=== PATIENT | female | born 1965 | race Caucasian/White ===

== ENCOUNTER → 2016-09-19 | Outpatient (CLI) | payer OTHER, MEDICAID | LOC: BMCIMAGING 14:10 | PROVIDERS: ATTEND Obstetrics & Gynecology Gynecology | DX: Z12.31 Encounter for screening mammogram for malignant neoplasm of breast (principal) | CPT/HCPCS: G0202 ==

== ENCOUNTER → 2016-10-04 | Outpatient (CLI) | payer OTHER, MEDICAID | LOC: BMCIMAGING 13:59 | DX: R92.8 Other abnormal and inconclusive findings on diagnostic imaging of breast (principal) | CPT/HCPCS: G0206 ==

== ENCOUNTER 2016-12-12 16:32 | Emergency (ER) | payer OTHER, MEDICAID ==
[2016-12-12 16:41] VITALS: RESP 18; TEMP 97.9
--- NOTE | 2016-12-12 18:09 | EDPHY ---
HPI/HX/ROS/PE/MDM Narrative: CHIEF COMPLAINT: Head injury HPI: The patient is a 51 y/o female arriving with her family member complaining of head injury after tripping and falling on the stairs around 15:00 today, 3 hours ago. She describes a mechanical fall and struck her left knee and left forehead. She denies loss of consciousness, headache, weakness, paresthesias, chest pain, abdominal pain, or other injuries. She has been ambulatory since the fall without issue. She went to urgent care for evaluation and was referred to the ED for head imaging. She denies anticoagulant use. She currently feels at baseline. REVIEW OF SYSTEMS: Aside from elements discussed in the HPI, a comprehensive 10-point review of systems was reviewed and is negative. PMH: Bipolar and schizoaffective disorder SOCIAL HISTORY: Family member at bedside PHYSICAL EXAM: General:Patient is alert, in no acute distress. ENT:Eyes are normal to inspection. ENT inspection normal. Neck: Normal inspection. Full range of motion. Respiratory:No respiratory distress. Breath sounds normal bilaterally. Cardiovascular: Regular rate and rhythm. Strong peripheral pulses. Normal cap refill. Abdomen:The abdomen is nontender to palpation. There are no peritoneal signs. Back: Normal to inspection. No tenderness to palpation. Skin: Normal color. No rash. Warm and dry. Extremities: Abrasion to left knee. Normal appearance. Full range of motion. Neuro: Oriented x3. Normal motor function. Normal sensory function. ED Course: Presents with superficial abrasion to left knee after fall down stairs. No other visible trauma noted. Normal neurologic exam. Plan for head CT. She declines pain medication at this time. Head CT: negative per Dr. eDan. Reassessed patient and discussed findings. She remains neurovascularly intact. She will be discharged home with standard head injury instructions and return precautions. She is comfortable with this plan. MDM: This patient presents with head injury but CTH is thankfully negative. I do not think further workup is indicated. I see no evidence of SAH, skull fracture , epidural bleed or concussion. - Data Points Imaging Results: Imaging Impressions Head CT 12/12/16 18:09 Impression: There is no acute abnormality identified on this unenhanced CT evaluation. If there is further clinical concern regarding the patient's symptoms, MR imaging is suggested, if not otherwise contraindicated. Findings were discussed with Kim in the ED, who will convey the information to Rubens Salter MD at 19:00, on 12/12/2016. General Time Seen by Provider: 12/12/16 16:47 Initial Vital Signs: Initial Vital Signs Temperature (C) 36.6 C 12/12/16 16:38 Heart Rate 63 12/12/16 16:38 Respiratory Rate 18 12/12/16 16:38 Blood Pressure 126/87 H 12/12/16 16:38 O2 Sat (%) 96 12/12/16 16:38 O2 Delivery Mode Room Air Allergies/Adverse Reactions: Penicillins Allergy (Intermediate, Verified 12/12/16 16:35) internal hives Home Medications: Medication Instructions Recorded Escitalopram Oxalate [Lexapro] 2.5 mg PO DAILY 02/09/14 Eszopiclone [Lunesta] 3 mg PO HS 02/09/14 Gabapentin [Neurontin 300 MG (RX)] 300 mg PO ,16 02/09/14 Gabapentin [Neurontin 300 MG (RX)] 900 mg PO HS 02/09/14 Liothyronine Sodium [Cytomel 5 mcg 15 mcg PO DAILY 02/09/14 (RX)] Memantine HCl [Namenda 5 mg (RX)] 5 mg PO HS 02/09/14 Memantine HCl [Namenda 5 mg (RX)] 10 mg PO DAILY 02/09/14 Perphenazine [Trilafon 8mg (RX)] 4 mg PO HS 02/09/14 Progesterone, Micronized 100 mg PO DAILY 02/09/14 [Progesterone] QUEtiapine FUMARATE [Seroquel 300 mg PO HS 02/09/14 300mg (RX)] lamoTRIgine [Lamictal XR] 250 mg PO DAILY 02/09/14 metFORMIN HCL [Glucophage] 750 mg PO BIDMEAL 02/09/14 LORazepam [Ativan 2 mg tab] 3 mg PO HS 09/14/15 Levothyroxine [Synthroid 88 mcg 88 mcg PO DAILY06 09/14/15 (RX)] [place] Carbonate ER [Eskalith Cr 450 mg PO DAILY 09/14/15 450 mg (RX)] [place] Carbonate ER [Lithobid] 300 mg PO HS 09/14/15 lamoTRIgine [LamICTAL] 100 mg PO DAILY 09/14/15 Departure - Departure Disposition: Home, Routine, Self-Care Clinical Impression: Fall, Head injury, Abrasion Condition: Good Instructions: Head Injury (ED), Abrasion (ED) Additional Instructions: Follow up with your primary care provider for any unimproved symptoms over the next few days. Return to the ED for any worsening of condition. Referrals: Shilpa House MD [Primary Care Provider] - As per Instructions Report Scribed for: Rubens Salter Report Scribed by: Kim Simon Date of Report: 12/12/16 Time of Report: 18:09 Physician Review and Approval Statement: Portions of this note were transcribed by an ED scribe. I personally performed the history, physical exam, and medical decision making; and confirm the accuracy of the information in the transcribed note.
[2016-12-12 19:23] VITALS: BP 108/98; PULSE 59; O2SAT 94
== END 2016-12-12 19:21 | disposition home or self-care (01) ==
DX: S09.90XA Unspecified injury of head, initial encounter (principal); S80.212A Abrasion, left knee, initial encounter; W01.198A Fall on same level from slipping, tripping and stumbling with subsequent striking against other object, initial encounter

== ENCOUNTER 2016-12-21 15:16 | Inpatient (IN) | payer OTHER, MEDICAID ==
--- NOTE | 2016-12-21 11:31 | BGECT ---
Amended report [f rep st] OUTPATIENT ECT I met today with the patient in concert with Tracee Luis RN, for over an hour to discuss a number of issues. I had a thorough letter that I reviewed from her therapist, Deya Montoya. I also had her recent emergency department visit notes and CT scan results, as well as her recent history and physical. In summary, it appears as if the patient is experiencing an increase in her mood and psychotic symptoms with notable mood instability and mixed states. She has approached this increase in her symptomatology with increasing her medications in the form of PRNs. Subsequent to that, she has periodically experienced motor instability, ataxia, and slurred speech, and had a recent serious fall after an ECT treatment where she hit her head requiring the emergency department visit. Her CT scan was negative. Basic lab work was noncontributory that included CBC and electrolyte panel. Her standing medications are significant and include: Memantine 15 mg a day in divided doses , gabapentin 2400 mg in divided doses, Seroquel 300 mg at bedtime, Cytomel 15 mcg daily, lamotrigine 350 mg q.a.m., Lunesta 3 mg at bedtime, Lexapro 2.5 mg daily, Trilafon 4 mg at night but often increased to 8 mg as needed, metformin, lithium carbonate 300 mg daily, levothyroxine, and lorazepam 2 mg as needed. It appears as if she has used the lorazepam, Trilafon, olanzapine, and increased gabapentin all as PRNs in the recent past and it is unclear what specifically led to the increased unsteadiness. I expressed to her that I feel her standing medications put her at some increased risk to begin with and like a "perfect storm" the addition of any further PRNs could be risky for her. Certainly doing outpatient ECT with the medications that she is presently taking puts her at risk for falls as recently seen. She is also on Nuedexta 2 times per day, which might even have a further impact of increasing some of her medications that are metabolized by the P450 2D6 enzyme. By history, she has simply not responded adequately to very aggressive and thoughtful medication combinations from Dr. Mac nor supplements provided. ECT has been imperfect in certain ways, but more clearly beneficial when she is in a true exacerbation of her mood symptoms. She has ambivalence around it as she attributes cognitive issues to it even when, in my opinion, much of her cognitive phenomenology is more likely a function of her mood disorder itself or the medication she takes for it. I presented her with the following plan. I believe she should come inpatient and have her medications reduced. Specifically ones that have antiepileptic effects, cognition impairing effects, or can produce ataxia/motor incoordination. This might include her gabapentin, Lamictal, Seroquel, and Trilafon. I would also have her not use benzodiazepines or extra PRNs. With the reduction of those medications, she will be able to more safely and with greater therapeutic effect undergo a short course of acute, bilateral ECT, as this again has been the most effective treatment for her. Dr. Mac should be returning from vacation next week and he can provide guidance on whether there is any medications that he would like us to implement. It is quite possible this patient would ultimately do best if she remained more committed and consistent with maintenance ECT and less reliant on medications that have provided her minimum relief. However, of course this is the patient's decision, and if subjectively she does not feel as confident as I that ECT has been as helpful as it has and believes it has been more harmful cognitively, then we will respect that decision and not undertake this treatment plan. Today, on mental status exam she is constricted in affect , but lucid in her thinking with no slurring of speech or ataxia noted. She does not have profound psychomotor slowing. She is fairly well related. Her judgment and insight are somewhat impaired, which is not atypical for her. She has passive suicidal ideation. No homicidal ideation. Some occasional perceptual distortions. No kelby delusions. Impulse control seems adequate at the moment. Logistically, what is compelling her to not come into the hospital immediately is the need to ensure that her ill cat has a dsp engineer who can take over in the patient's absence. Beyond that, I believe there is some ambivalence about the inpatient unit, but she also seems to understand that her symptoms are not improving and that she is being put at risk by increasing her medications due to the recent falling. /[id number]/MODL Assigned account/visit number, skb 12/22/2016. MTDD
--- NOTE | 2016-12-21 15:57 | EDPHY ---
H & P Stated Complaint: ECT RN and Dr Chavez sent pt here to be admitted for inpt psych;denies SI/H HPI/ROS: HPI CHIEF COMPLAINT: Severe depression HISTORY OF PRESENT ILLNESS: this patient is a 51-year-old female very pleasant , she has significant past medical history for severe depression, schizoaffective disorder bipolar, she presents emergency room as she is due to get ECT next week. Dr. Campos sent her here to the emergency room to be admitted at [address] [place] [address]. Here in the ER she has no complaints. She does tell me she has depression. She denies suicidal ideation. She is voluntary Past Medical History: severe depression, bipolar disorder, schizoaffective disorder Past Surgical History: no recent surgical history Social History: denies daily use of drugs alcohol tobacco products Family History: noncontributory ROS REVIEW OF SYSTEMS: A comprehensive 10 point review of systems is otherwise negative aside from elements mentioned in the history of present illness. Exam Constitutional appears well nontoxic triage nursing summary reviewed, vital signs reviewed, awake/alert. Eyes normal conjunctivae and sclera, EOMI, PERRLA. HENT normal inspection, atraumatic, moist mucus membranes, no epistaxis, neck supple/ no meningismus, no raccoon eyes. Respiratory clear to auscultation bilaterally, normal breath sounds, no respiratory distress, no wheezing. Cardiovascular rate normal, regular rhythm, no murmur, no edema, distal pulses normal. Gastrointestinal soft, non-tender, no rebound, no guarding, normal bowel sounds, no distension, no pulsatile mass. Genitourinary no CVA tenderness. Musculoskeletal no midline vertebral tenderness, full range of motion, no calf swelling, no tenderness of extremities, no meningismus, good pulses, neurovascularly intact. Skin pink, warm, & dry, no rash, skin atraumatic. Neurologic awake, alert and oriented x 3, AAOx3, moves all 4 extremities equally, motor intact, sensory intact, CN II-XII intact, normal cerebellar, normal vision, normal speech. Psychiatric flat affect Heme/Lymph/Immune no lymphadenopathy. Differential Diagnosis: includes but is not limited to in a particular order, severe depression, debilitating depression, bipolar disorder Medical Decision Making: plan for this pain patient will need a blood draw for medical clearance, and then voluntary admission to [address] [place] [address] for further evaluation and ECT. EKG interpretation by me on record in [facility] system. Impression Time of EKG 1626, sinus rhythm rate of 66 otherwise unremarkable EKG. No prolonged intervals. No acute ischemia. 2024:This patient has been accepted by Dr. Campos at [address] [place] [address]. Appropriate transfer be set up. EMTALA filled out. 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 - Social History Smoking Status: Light smoker Constitutional: Initial Vital Signs Temperature (C) 36.7 C 12/21/16 15:24 Heart Rate 79 12/21/16 15:24 Respiratory Rate 18 12/21/16 15:24 Blood Pressure 123/72 H 12/21/16 15:24 O2 Sat (%) 96 12/21/16 15:24 O2 Delivery Mode Room Air Allergies/Adverse Reactions: Penicillins Allergy (Severe, Verified 12/21/16 17:59) Hives Home Medications: Medication Instructions Recorded Escitalopram Oxalate [Lexapro] 2.5 mg PO DAILY 02/09/14 Eszopiclone [Lunesta] 3 mg PO HS 02/09/14 Gabapentin [Neurontin 300 MG (RX)] 900 mg PO BID 02/09/14 Memantine HCl [Namenda 5 mg (RX)] 10 mg PO DAILY 02/09/14 Perphenazine [Trilafon 8mg (RX)] 4 mg PO HS 02/09/14 QUEtiapine FUMARATE [Seroquel 300 mg PO HS 02/09/14 300mg (RX)] lamoTRIgine [Lamictal XR] 250 mg PO DAILY 02/09/14 metFORMIN HCL [Glucophage] 750 mg PO BIDMEAL 02/09/14 Levothyroxine [Synthroid 88 mcg 88 mcg PO DAILY06 09/14/15 (RX)] [place] Carbonate ER [Lithobid] 300 mg PO DAILY 09/14/15 Compounded Estrogen Crm 1 roberto TP DAILY 12/21/16 Compounded Progesterone 300mg 300 mg PO HS 12/21/16 Dextromethorphan HBr/Quinidine 1 each PO BID 12/21/16 [Nuedexta 20-10 mg Capsule] Gabapentin [Neurontin] 600 mg PO DAILY@15 12/21/16 Herbals/Supplements -Info Only 1 ea PO DAILY 12/21/16 lamoTRIgine [LamICTAL XR] 100 mg PO DAILY 12/21/16 Medical Decision Making - Data Points Laboratory Results: Laboratory Results 12/21/16 16:12 12/21/16 16:12 12/21/16 12/21/16 12/21/16 Unknown 16:40 16:12 WBC RBC Hgb Hct MCV MCH MCHC RDW Plt Count MPV Neut % (Auto) Lymph % (Auto) [place] % (Auto) Eos % (Auto) Baso % (Auto) Nucleat RBC Rel Count Absolute Neuts (auto) Absolute Lymphs (auto) Absolute Monos (auto) Absolute Eos (auto) Absolute Basos (auto) Absolute Nucleated RBC Immature Gran % Immature Gran # Sodium Potassium Chloride Carbon Dioxide Anion Gap BUN Creatinine Estimated GFR Glucose Calcium TSH 0.784 uIU/mL uIU/mL (0.465-4.680) Urine Opiates Screen NEGATIVE (NEGATIVE) Urine Barbiturates NEGATIVE (NEGATIVE) Lamotrigine Pending Ur Phencyclidine Scrn NEGATIVE (NEGATIVE) Ur Amphetamine Screen NEGATIVE (NEGATIVE) U Benzodiazepines Scrn NEGATIVE (NEGATIVE) [place] 0.6 mEq/L mEq/L (0.6-1.2) Urine Cocaine Screen NEGATIVE (NEGATIVE) U Marijuana (THC) Screen NEGATIVE (NEGATIVE) Ethyl Alcohol 12/21/16 12/21/16 16:12 16:12 WBC 7.63 10^3/uL 10^3/uL (3.80-9.50) RBC 4.39 10^6/uL 10^6/uL (4.18-5.33) Hgb 13.6 g/dL g/dL (12.6-16.3) Hct 40.2 % % (38.0-47.0) MCV 91.6 fL fL (81.5-99.8) MCH 31.0 pg pg (27.9-34.1) MCHC 33.8 g/dL g/dL (32.4-36.7) RDW 12.5 % % (11.5-15.2) Plt Count 364 10^3/uL 10^3/uL (150-400) MPV 8.5 fL L fL (8.7-11.7) Neut % (Auto) 67.0 % % (39.3-74.2) Lymph % (Auto) 26.1 % % (15.0-45.0) [place] % (Auto) 5.0 % % (4.5-13.0) Eos % (Auto) 0.9 % % (0.6-7.6) Baso % (Auto) 0.7 % % (0.3-1.7) Nucleat RBC Rel Count 0.0 % % (0.0-0.2) Absolute Neuts (auto) 5.12 10^3/uL 10^3/uL (1.70-6.50) Absolute Lymphs (auto) 1.99 10^3/uL 10^3/uL (1.00-3.00) Absolute Monos (auto) 0.38 10^3/uL 10^3/uL (0.30-0.80) Absolute Eos (auto) 0.07 10^3/uL 10^3/uL (0.03-0.40) Absolute Basos (auto) 0.05 10^3/uL 10^3/uL (0.02-0.10) Absolute Nucleated RBC 0.00 10^3/uL 10^3/uL (0-0.01) Immature Gran % 0.3 % % (0.0-1.1) Immature Gran # 0.02 10^3/uL 10^3/uL (0.00-0.10) Sodium 139 mEq/L mEq/L (134-144) Potassium 4.3 mEq/L mEq/L (3.5-5.2) Chloride 103 mEq/L mEq/L (97-110) Carbon Dioxide 21 mEq/l L mEq/l (22-31) Anion Gap 15 mEq/L mEq/L (8-16) BUN 12 mg/dL mg/dL (7-23) Creatinine 0.9 mg/dL mg/dL (0.6-1.0) Estimated GFR > 60 Glucose 86 mg/dL mg/dL (70-100) Calcium 10.2 mg/dL mg/dL (8.5-10.4) TSH Urine Opiates Screen Urine Barbiturates Lamotrigine Ur Phencyclidine Scrn Ur Amphetamine Screen U Benzodiazepines Scrn [place] Urine Cocaine Screen U Marijuana (THC) Screen Ethyl Alcohol < 10 mg/dL mg/dL (0-10) Departure - Departure Disposition: [facility] IP Clinical Impression: Depression Qualifiers: Depression Type: major depressive disorder Major depression recurrence: single episode Active/Remission status: currently active Major depression episode severity: mild Qualified Code(s): F32.0 - Major depressive disorder, single episode, mild Condition: Fair Referrals: Shilpa House MD [Primary Care Provider] - As per Instructions
[2016-12-21 16:20] LABS: % IMMATURE GRANULYOCYTES 0.3 % (0.0-1.1); ABSOLUTE IMMATURE GRANULOCYTES 0.02 10^3/uL (0.00-0.10); ADD DIFF? NO; ADD MORPH? NO; ADD SCAN? NO; ATYPICAL LYMPHOCYTE FLAG 0 (0-99); FRAGMENT RBC FLAG 0 (0-99); HEMATOCRIT 40.2 % (38.0-47.0); HEMOGLOBIN 13.6 g/dL (12.6-16.3); LEFT SHIFT FLG 0 (0-99); LIPEMIA HEMOLYSIS FLAG 90 (0-99); MEAN CELL HEMOGLOBIN CONCENTR. 33.8 g/dL (32.4-36.7); MEAN CELL VOLUME 91.6 fL (81.5-99.8); MEAN PLATELET VOLUME 8.5 fL (8.7-11.7); PLATELET CLUMPS FLAG 0 (0-99); PLATELET COUNT 364 10^3/uL (150-400); RED BLOOD CELL COUNT 4.39 10^6/uL (4.18-5.33); RED CELL DISTRIBUTION WIDTH 12.5 % (11.5-15.2)
--- NOTE | 2016-12-21 16:28 | CPEKG ---
Heart Rate: 66 RR Interval: 909 P-R Interval: 172 QRSD Interval: 100 QT Interval: 408 QTC Interval: 428 P [place]: 56 QRS [place]: 36 T Wave [place]: -1 EKG Severity - NORMAL ECG - EKG Impression: SINUS RHYTHM Electronically Signed By: Osman Hogan 21-Dec-2016 22:45:09
[2016-12-21 16:36] LABS: ANION GAP 15 mEq/L (8-16); CALCIUM 10.2 mg/dL (8.5-10.4); CARBON DIOXIDE 21 mEq/l (22-31); CHLORIDE 103 mEq/L (97-110); CREATININE 0.9 mg/dL (0.6-1.0); ETHANOL SERUM < 10 mg/dL (0-10); GLOMERULAR FILTRATION RATE > 60; GLUCOSE 86 mg/dL (70-100); POTASSIUM 4.3 mEq/L (3.5-5.2); SODIUM 139 mEq/L (134-144)
[2016-12-21] MEDS ORDERED: ACETAMINOPHEN 325 MG TAB PO PRN ×2 (17:07→21:42)
[2016-12-21] MEDS ORDERED: MAG HYDROX/AL HYDROX/SIMETH 30 ML UDCUP PO PRN ×2 (17:07→21:42)
[2016-12-21] MEDS ORDERED: MAGNESIUM HYDROXIDE 30 ML UDCUP PO PRN ×2 (17:07→21:42)
[2016-12-21] MEDS ORDERED: NICOTINE POLACRILEX 2 MG GUM B PRN ×2 (17:07→21:42)
[2016-12-21 17:24] LABS: LITHIUM 0.6 mEq/L (0.6-1.2)
[2016-12-21 22:41] LABS: COLOR PALE YELLOW; LEUKOCYTE ESTERASE,URINE 2+ (NEGATIVE); NITRITE,URINE NEGATIVE (NEGATIVE)
[2016-12-21] MEDS ORDERED: PERPHENAZINE 2 MG TAB PO SCH (22:45)
[2016-12-21] MEDS: QUEtiapine FUMARATE 100 MG TAB PO SCH (22:49)
[2016-12-21] MEDS: GABAPENTIN 300 MG CAP PO SCH (22:49)
[2016-12-21] MEDS: PERPHENAZINE 2 MG TAB PO SCH (22:58)
[2016-12-21 23:11] LABS: BACTERIA TRACE /hpf (NONE SEEN)
[2016-12-21 23:12] LABS: RBC,URINE NONE SEEN /hpf (0-3)
--- NOTE | 2016-12-21 23:18 | GCON ---
[f rep st] CONSULTATION Please see the magnetic tape typewriter operator's report dictated yesterday for further information. The patient is a 51-year-old white single female, who is treated by Soham Mac MD, and Deya Montoya. This magnetic tape typewriter operator treats her, and has done so for the last 5 years, with maintenance electroconvulsi ve therapy. She presented yesterday for a visit with this magnetic tape typewriter operator, accompanied by Tracee Akins RN, t o discuss her treatment plan. Apparently she is having an exacerbation of her mood and psychotic sy mptoms followed by increasing use of p.r.n. medications which has led her to feel unstable and even have some falls. An ECT treatment was also attempted but led later that day to a more severe fall, prompting a visit to the emergency department. Head CT was negative at that point, as she did bang her head and incurred a large bruise on her torso. At the meeting yesterday, she enumerated her med ications and the way in which she is taking sporadic PRNs. Her medications include memantine 50 mg a day in divided doses, gabapentin 2400 mg in divided doses, Seroquel 300 mg at bedtime, Cytomel 15 mcg q. day, lamotrigine XR 350 mg q. day, Lunesta 3 mg at bedtime, Lexapro 2.5 mg q. day, and Trilaf on 4 mg at night but she often has been increasing this to 8 mg because of increase in her mixed and psychotic symptoms. She also takes lithium carbonate 300 mg a day, metformin, levothyroxine, and a nother p.r.n., lorazepam 2 mg with unclear frequency with which she is using that medication. She h as also taken olanzapine as a p.r.n., which she clearly has stores of at home. She is monitoring he r own medication. It was made clear to her that her standing medications put her at increased risk for falls, and she is clearly susceptible with any additional medications or the addition of ECT. I t was at this meeting that we concluded that she needed to come inpatient in order to have medicatio ns reduced, thereby enabling her to undergo a short course of acute ECT more safely. Another medica tion she uses is Nuedexta 2 times per day which is for pseudobulbar affect and used for mood instabi lity off-label by psychiatrist. This may have the impact of increasing some of her medications that may be metabolized by the P450 2D6 enzyme. I had a lengthy discussion with the patient's brother, Rubens, today. She lives with him, but his wo rk situation is so tenuous that he is unable to take any time off to care for her and has not been q uite on top of her medications as he has historically been. He was given psychoeducation, as the lorna vieira received yesterday, about the fact that her present cognitive complaints of poor memory and at tention are, to this magnetic tape typewriter operator, much more clearly a function of her inadequately treated mood disorder primarily and medications secondarily, with ECT being a far 3rd. He also corroborated the history t hat this patient had also been taking Wellbutrin recently and Vraylar, possibly both started by Dr. Mac given the patient's complaints of anergia. These were given to her in the last few months , and it is over this last time frame that she has experienced increased mood lability, psychosis, i ncluding auditory hallucinations telling her derogatory things, and mixed episodes. He was in favor of discontinuing the Wellbutrin. He also is comfortable with the magnetic tape typewriter operator implementing a short acute course of ECT but simply wishes us to be able to keep her a bit longer after her acute course so th at she can convalesce from her cognitive side effects, as he will not be able to provide 24/7 superv ision. Thus, in sum, the treatment plan for the patient is the followin. Reduce or discontinue certain medications that could be contributing to her cognitive impairment , gait instability, and recent falls. Also reduce medications that have antiepileptic affects so as to enhance the efficacy of the ECT treatments. I would recommend a reduction of her gabapentin, La mictal, Trilafon back to 4 mg, and the discontinuation of lithium which can incur her neurocognitive side affects with acute ECT anyway. (Her lithium level in the ER was 0.6, and her TSH was normal a t 0.784, lamotrigine level was pending.). 2. Begin acute ECT treatments. I will consult with patient on Saturday again about whether she wishe s to pursue bilateral or unilateral treatment. If we are, in fact, going to try to limit the number of treatments, I do not think it is that consequential in terms of cognitive impact whether we do b ilateral versus unilateral, and the bilateral is incrementally more powerful. Thus, I would probabl y recommend bilateral but am, of course, going to leave that up to the patient. 3. If an acute course of ECT has proved fruitful, we may consider changes to her medications. She seems to be wedded to the notion of trying Trileptal. It is, on the other hand, an entirely legitim ate therapeutic plan to keep her on a less significant load of psychotropic medication if she is brayan ling to use maintenance ECT more frequently. 4. Dr. Villagomez will be taking over her care as of Saturday evening, as this magnetic tape typewriter operator will be away on [facility] for 2 weeks. A voicemail has been left for Dr. Mac who, himself, is on vacation during this same time frame, and a voicemail was left yesterday for Deya Montoya, who responded with one of her own indicating that she agrees with the game plan as described. /[id number]/MODL
[2016-12-22] MEDS: GABAPENTIN 300 MG CAP PO SCH ×2 (08:50→21:17)
[2016-12-22] MEDS: ESCITALOPRAM OXALATE 10 MG TAB PO SCH (08:51)
[2016-12-22] MEDS: MEMANTINE HCL 5 MG TAB PO SCH (08:51)
[2016-12-22] MEDS: metFORMIN HCL 500 MG TAB PO SCH ×2 (08:53→18:54)
[2016-12-22] MEDS ORDERED: GABAPENTIN 300 MG CAP PO SCH (09:00)
[2016-12-22] MEDS ORDERED: GABAPENTIN 400 MG CAP PO SCH (09:00)
[2016-12-22] MEDS ORDERED: Herbals/Supplements -Info Only PO SCH (09:00)
[2016-12-22] MEDS ORDERED: ESCITALOPRAM OXALATE 2.5 MG PO SCH (09:00)
[2016-12-22] MEDS: LEVOTHYROXINE 88 MCG TAB PO SCH (10:58)
[2016-12-22] MEDS: [UNRECOGNIZED DRUG - OTHER] TP SCH (12:06)
[2016-12-22] MEDS: DEXTROMETHORPHAN HBR PO SCH ×2 (12:07→21:15)
[2016-12-22] MEDS: QUINIDINE PO SCH ×2 (12:07→21:15)
[2016-12-22] MEDS: LAMOTRIGINE 100 MG PO SCH (12:09)
--- NOTE | 2016-12-22 12:24 | GCON ---
[f rep st] CONSULTATION INTERNAL MEDICINE CONSULTATION DATE OF CONSULTATION: 12/22/2016 REASON FOR CONSULTATION: Medical clearance for inpatient psychiatric treatment. HISTORY OF PRESENT ILLNESS: This is a 51-year-old female who has a complicated psychiatric history including severe depression, who was getting ECT treatments in the past and will probably get them i n the future. She has a history of schizoaffective disorder and bipolar depression. She was sent t o be admitted for ECT treatment. She currently denies any physical complaints. REVIEW OF SYSTEMS: A 10-point review of systems was obtained and was negative. PAST MEDICAL HISTORY: Severe depression, bipolar schizoaffective disorder. She is on metformin for some early diabetes, probably due to her medications. She also has a history of hypothyroidism and previous history of migraine headaches. SOCIAL HISTORY: Recovering alcoholic. FAMILY HISTORY: Reviewed and noncontributory. PHYSICAL EXAM: VITAL SIGNS: Afebrile. Blood pressure is 163/87, heart rate 67, oxygen saturation 97% on room air. GENERAL: The patient is well-developed, no apparent distress. HEENT: Nonicteric sclerae. Extraocular movements intact. Moist mucous membranes. NECK: Supple. No thyromegaly. LUNGS: Good effort. Clear to auscultation bilaterally. CARDIOVASCULAR: Regular rate and rhythm. No murmurs or gallops. ABDOMEN: Positive bowel sounds. Soft, nontender, nondistended. No hepato splenomegaly. EXTREMITIES: No clubbing, cyanosis or edema. SKIN: Without rash. Warm, dry, intac t. NEUROLOGIC: Alert and oriented x3. LABS: CBC is normal. Chemistries normal. TSH is 0.7. UA shows 2+ leukocyte esterase and trace ba cteria, but she is denying any urinary complaints. U-tox is negative. ASSESSMENT: This is a 51-year-old female presenting for electroconvulsive therapy treatment for sev ere depression. PLAN: There are no contraindications for patient being hospitalized for her psychiatric disorder or for ECT. She has had that in the past. Continue her previous home medications. /[id number]/MODL
--- NOTE | 2016-12-22 19:44 | SOAPPROG ---
SOAP Progress Note Assessment/Plan: Assessment: Plan: 12/22/16 19:46 Plan as above with medication changes and abbreviated acute course ECT starting Saturday. Subjective: Pt seen, discussed with staff. Case reviewed with Dr. Chavez. She is a 51 y/o CF with hx of depressive predominant Bipolar d/o. Has reached a point in active treatment where it is unclear whether there are iatrogenic causes or contributors to her overall clinical picture and acute dysfunction. Aggressive efforts initiated to limit possible negative impact of polypharmacy. Will support with brief acute phase ECT. This plan is reviewed with pt at length today and she is agreeable. She objected at first stating she was "afraid" to make more than one change at a time and actually wanted to add meds. I reinforced Dr. Chavez's plan that a subtractive approach backed by brief intervention of acute course ECT was reasonable. Objective: Vital Signs Temp Pulse Resp BP Pulse Ox 36.3 C 78 14 127/75 H 94 12/22/16 13:18 12/22/16 13:18 12/22/16 13:18 12/22/16 13:18 12/22/16 13:18 MSE: Moderately anxious, coop, approp. Affect is blunted, dysphoric, stable. Mood is "scared." TP linear with some negative perseveration. TC reveals no psychosis. A&Ox4, sensorium is clear. No SI. I/J appear good and pt is able to provide informed consent for treatment plan. - Time Spent With Patient Time Spent With Patient: 35" - Pending Discharge Pending Discharge Within 24 Hours: No Pending Discharge Within 48 Hours: No ICD10 Worksheet Patient Problems: Problems Problem Status Onset Depression Acute pneumoperitoneum Acute
[2016-12-22] MEDS ORDERED: PERPHENAZINE 8 MG TAB PO SCH (21:00)
[2016-12-22] MEDS ORDERED: QUEtiapine FUMARATE 300 MG TAB PO SCH (21:00)
[2016-12-22] MEDS ORDERED: PERPHENAZINE 2 MG TAB PO SCH (21:00)
[2016-12-22] MEDS: COMPOUNDED PROGESTERONE 200 MG PO SCH (21:12)
[2016-12-22] MEDS: PROGESTERONE 100 MG PO SCH (21:13)
[2016-12-22] MEDS: PERPHENAZINE 2 MG TAB PO SCH (21:15)
[2016-12-22] MEDS: QUEtiapine FUMARATE 100 MG TAB PO SCH (21:15)
[2016-12-22] MEDS: Eszopiclone [Lunesta] 3 MG PO SCH (21:18)
[2016-12-23] MEDS: metFORMIN HCL 500 MG TAB PO SCH ×2 (08:21→17:34)
[2016-12-23] MEDS: DEXTROMETHORPHAN HBR PO SCH ×2 (08:23→20:29)
[2016-12-23] MEDS: QUINIDINE PO SCH ×2 (08:23→20:29)
[2016-12-23] MEDS: ESCITALOPRAM OXALATE 10 MG TAB PO SCH (08:23)
[2016-12-23] MEDS: GABAPENTIN 300 MG CAP PO SCH ×2 (08:25→20:31)
[2016-12-23] MEDS: LAMOTRIGINE 100 MG PO SCH (08:25)
[2016-12-23] MEDS: MEMANTINE HCL 5 MG TAB PO SCH (08:26)
[2016-12-23] MEDS: LEVOTHYROXINE 88 MCG TAB PO SCH ×2 (08:27→08:57)
[2016-12-23] MEDS: [UNRECOGNIZED DRUG - OTHER] TP SCH (12:47)
[2016-12-23] MEDS: COMPOUNDED PROGESTERONE 200 MG PO SCH (20:28)
[2016-12-23] MEDS: Eszopiclone [Lunesta] 3 MG PO SCH (20:30)
[2016-12-23] MEDS: PROGESTERONE 100 MG PO SCH (20:32)
[2016-12-23] MEDS: PERPHENAZINE 2 MG TAB PO SCH (20:33)
[2016-12-23] MEDS: QUEtiapine FUMARATE 100 MG TAB PO SCH (20:33)
--- NOTE | 2016-12-23 21:10 | SOAPPROG ---
SOAP Progress Note Assessment/Plan: Assessment: 51yo F with BMD and chronic depr sxs admitted 2/2 persistent mixed state for med reduction and brief course acute ECT. 12/24/16 01:42 per staff, slept 6.5hr. no acute issues. pt states she is concerned about her recent med changes but less anxious with reassurance based on treatment team recommendations reviewed. States she is having some trouble falling asleep. casually dressed, long kempt hair, good eye contact, thoughts linear, mood mildly anxious, affect congruent and slightly dysphoric, denied psychotic symptoms, denied any current SI. cognition conversationally intact. PLAN: continue with plan for ECT in AM and med changes gradually as per treatment team Objective: Vital Signs Temp Pulse Resp BP Pulse Ox 36.9 C 86 16 126/68 H 95 12/23/16 06:20 12/23/16 06:20 12/23/16 06:20 12/23/16 06:20 12/23/16 06:20 - Time Spent With Patient Time Spent With Patient: 15min - Pending Discharge Pending Discharge Within 48 Hours: No ICD10 Worksheet Patient Problems: Problems Problem Status Onset Depression Acute pneumoperitoneum Acute
[2016-12-24] MEDS ORDERED: ONDANSETRON DISINTEGRATING 4 MG TAB PO ONE (04:00)
[2016-12-24] MEDS ORDERED: NS 1,000 ML IV ONE (04:00)
[2016-12-24] MEDS ORDERED: LIDOCAINE 2% 5 ML SDV ID ONE (04:00)
[2016-12-24] MEDS ORDERED: CITRIC ACID/SODIUM CITRATE 30 ML UDCUP PO ONE (04:00)
[2016-12-24] MEDS: [UNRECOGNIZED DRUG - OTHER] TP SCH ×2 (08:45→13:55)
[2016-12-24] MEDS: QUINIDINE PO SCH ×2 (08:46→20:34)
[2016-12-24] MEDS: DEXTROMETHORPHAN HBR PO SCH ×2 (08:46→20:34)
[2016-12-24] MEDS: ESCITALOPRAM OXALATE 10 MG TAB PO SCH (08:48)
[2016-12-24] MEDS: GABAPENTIN 300 MG CAP PO SCH ×2 (08:50→14:06)
[2016-12-24] MEDS: LEVOTHYROXINE 88 MCG TAB PO SCH (08:52)
[2016-12-24] MEDS: MEMANTINE HCL 5 MG TAB PO SCH (08:53)
[2016-12-24] MEDS: metFORMIN HCL 500 MG TAB PO SCH ×2 (08:54→17:34)
[2016-12-24] MEDS: LAMOTRIGINE 100 MG PO SCH ×2 (10:49→14:17)
[2016-12-24] MEDS ORDERED: PROMETHAZINE HCL 25 MG TAB ONE (11:34)
[2016-12-24] MEDS ORDERED: ONDANSETRON DISINTEGRATING 4 MG TAB ONE (11:34)
[2016-12-24] MEDS ORDERED: CITRIC ACID/SODIUM CITRATE 30 ML UDCUP ONE (11:34)
[2016-12-24] MEDS ORDERED: SCOPOLAMINE HYDROBROMIDE 1.5 MG PATCH TD ONE ×2 (11:59→12:33)
[2016-12-24] MEDS ORDERED: PROMETHAZINE HCL 25 MG/ML INJ IVP ONE (12:33)
[2016-12-24] MEDS ORDERED: HYDROCODONE/APAP 5/325 TAB PO PRN (12:34)
[2016-12-24] MEDS ORDERED: PROMETHAZINE HCL 25 MG TAB PO PRN (12:34)
[2016-12-24] MEDS ORDERED: ONDANSETRON DISINTEGRATING 4 MG TAB PO PRN (12:34)
[2016-12-24] MEDS ORDERED: IBUPROFEN 600 MG TAB PO PRN (12:34)
[2016-12-24] MEDS ORDERED: PROGESTERONE 300 MG PO SCH (12:35)
[2016-12-24] MEDS ORDERED: OLANZapine 5 MG TAB PO PRN (12:36)
[2016-12-24] MEDS ORDERED: OLANZapine 2.5 MG TAB PO PRN (12:37)
--- NOTE | 2016-12-24 13:07 | SOAPPROG ---
SOAP Progress Note Assessment/Plan: Assessment Schizoaffective disorder, Bipolar type Plan: reviewed weekend MD, RN and CC notes. Met with pt pre ECT. Discussed with Dr Villagomez to whom I will sign out until my return 01/07. Pt highly anxious and feels she is in w/d from med reduction which indeed could be contributing to her mental state. I reminded her again of rationale to decrease meds with AED effect, cogntion impairing impact and/or over-sedating effect. This will allow for safe and efficacious application of acute ECT,which she decided she'd prefer to do RUL (with option to change to B at any time). I will add zyprexa as prn for sleep and daytime agitation, as it in not anti- convulsant,and I believe she will not be a fall risk given the reductions of her other standing meds. She will need scop patch and phenergan "on-snow" for each ect. Pre ECT orders placed for Saturday. LMT level back at 10, reflective of her [address] Villagomez aware that pt may wish a trial of trileptal upon completion of what is hoped to be a brief (3-5) acute ECT course. Maybe this will be an apt replacement for Gabapentin as that med is equivocal as mood stabilizer in general, and specifically in this patients case whereby it is unclear if it has added benefit. 12/24/16 13:00 Objective: Vital Signs Temp Pulse Resp BP Pulse Ox 36.9 C 87 14 114/63 97 12/24/16 06:30 12/24/16 06:30 12/24/16 06:30 12/24/16 06:30 12/24/16 06:30 ICD10 Worksheet Patient Problems: Problems Problem Status Onset Depression Acute pneumoperitoneum Acute
[2016-12-24] MEDS: [UNRECOGNIZED DRUG - OTHER] PO SCH (20:32)
[2016-12-24] MEDS: PROGESTERONE PO SCH (20:32)
[2016-12-24] MEDS: Eszopiclone [Lunesta] 3 MG PO SCH (20:35)
[2016-12-24] MEDS: PERPHENAZINE 2 MG TAB PO SCH (20:38)
[2016-12-24] MEDS: QUEtiapine FUMARATE 100 MG TAB PO SCH (20:40)
[2016-12-25] MEDS: metFORMIN HCL 500 MG TAB PO SCH ×2 (09:46→18:53)
[2016-12-25] MEDS: ESCITALOPRAM OXALATE 10 MG TAB PO SCH (09:47)
[2016-12-25] MEDS: GABAPENTIN 300 MG CAP PO SCH (09:47)
[2016-12-25] MEDS: LEVOTHYROXINE 88 MCG TAB PO SCH (09:48)
[2016-12-25] MEDS: LAMOTRIGINE 100 MG PO SCH (09:50)
[2016-12-25] MEDS: [UNRECOGNIZED DRUG - OTHER] TP SCH (10:00)
[2016-12-25] MEDS: DEXTROMETHORPHAN HBR PO SCH ×2 (10:01→20:55)
[2016-12-25] MEDS: QUINIDINE PO SCH ×2 (10:01→20:55)
[2016-12-25] MEDS: MEMANTINE HCL 5 MG TAB PO SCH (10:36)
[2016-12-25] MEDS ORDERED: lamoTRIgine 100 MG TAB PO ONE (14:24)
--- NOTE | 2016-12-25 17:10 | SOAPPROG ---
SOAP Progress Note Assessment/Plan: Assessment: Plan: 12/22/16 19:46 Plan as above with medication changes and abbreviated acute course ECT starting Saturday. 12/25/16 17:12 Improved, tolerating med changes well. CCM with MWF ECT this week. Subjective: Pt seen, discussed with staff. Reports tolerating ECT well yesterday with some h/a and nausea. Mood is better, more hopeful. Cognition stable. Tolerating med changes well. Objective: Vital Signs Temp Pulse Resp BP Pulse Ox 37.1 C 97 16 98/56 L 96 12/25/16 00:30 12/25/16 00:30 12/25/16 00:30 12/25/16 00:30 12/25/16 00:30 MSE: Calm, coop. Affect is brighter, less blunted. Mood is "better." TP linear. TC reveals no psychosis. SI "better." - Time Spent With Patient Time Spent With Patient: 25" ICD10 Worksheet Patient Problems: Problems Problem Status Onset Depression Acute pneumoperitoneum Acute
[2016-12-25] MEDS: QUEtiapine FUMARATE 100 MG TAB PO SCH (20:55)
[2016-12-25] MEDS: PERPHENAZINE 2 MG TAB PO SCH (20:55)
[2016-12-25] MEDS: PROGESTERONE PO SCH (20:56)
[2016-12-25] MEDS: Eszopiclone [Lunesta] 3 MG PO SCH (20:56)
[2016-12-25] MEDS: [UNRECOGNIZED DRUG - OTHER] PO SCH (20:56)
[2016-12-26] MEDS ORDERED: NS 1,000 ML IV ONE (04:00)
[2016-12-26] MEDS ORDERED: SCOPOLAMINE HYDROBROMIDE 1.5 MG PATCH TD ONE (04:00)
[2016-12-26] MEDS ORDERED: LIDOCAINE 2% 5 ML SDV ID ONE (04:00)
[2016-12-26] MEDS ORDERED: ONDANSETRON DISINTEGRATING 4 MG TAB PO ONE (04:00)
[2016-12-26] MEDS ORDERED: PROMETHAZINE HCL 25 MG TAB PO ONE (04:00)
[2016-12-26] MEDS ORDERED: LIDOCAINE 2% 5 ML SDV ONE (05:34)
[2016-12-26] MEDS ORDERED: METHOHEXITAL SODIUM 100 MG/10 ML SYR IVP ONE (06:06)
[2016-12-26] MEDS ORDERED: ONDANSETRON DISINTEGRATING 4 MG TAB ONE (06:06)
[2016-12-26] MEDS ORDERED: CITRIC ACID/SODIUM CITRATE 30 ML UDCUP ONE (06:06)
[2016-12-26] MEDS ORDERED: PROMETHAZINE HCL 25 MG TAB ONE (06:06)
[2016-12-26] MEDS ORDERED: fentaNYL 100 MCG/2 ML INJ ONE (06:06)
[2016-12-26] MEDS ORDERED: MIDAZOLAM 2 MG/2 ML VIAL ONE (06:06)
[2016-12-26] MEDS ORDERED: KETOROLAC 30 MG/1 ML SDV ONE (06:07)
[2016-12-26] MEDS ORDERED: GLYCOPYRROLATE 0.2 MG/1 ML VIAL ONE (06:07)
[2016-12-26] MEDS ORDERED: PROPOFOL 200 MG/20 ML VIAL ONE (06:08)
[2016-12-26] MEDS ORDERED: ONDANSETRON 4 MG/2 ML VIAL ONE (06:08)
[2016-12-26] MEDS ORDERED: ROCURONIUM 50 MG/5 ML VIAL ONE (06:09)
[2016-12-26] MEDS ORDERED: SUCCINYLCHOLINE CHLORIDE 200 MG/10 ML VIAL ONE (06:09)
[2016-12-26] MEDS ORDERED: LORazepam 2 MG/ML INJ ONE (06:09)
[2016-12-26] MEDS ORDERED: LIDOCAINE 2% 2 ML INJ ONE (06:23)
[2016-12-26] MEDS ORDERED: HYDROCODONE/APAP 5/325 TAB ONE (06:52)
[2016-12-26] MEDS ORDERED: HYDROCODONE/APAP 5/325 TAB PO PRN (07:07)
[2016-12-26] MEDS: LAMOTRIGINE 100 MG PO SCH (11:09)
[2016-12-26] MEDS: QUINIDINE PO SCH ×2 (11:10→20:36)
[2016-12-26] MEDS: DEXTROMETHORPHAN HBR PO SCH ×2 (11:10→20:36)
[2016-12-26] MEDS: MEMANTINE HCL 5 MG TAB PO SCH (11:11)
[2016-12-26] MEDS: [UNRECOGNIZED DRUG - OTHER] TP SCH (11:11)
[2016-12-26] MEDS: ESCITALOPRAM OXALATE 10 MG TAB PO SCH (11:12)
[2016-12-26] MEDS: LEVOTHYROXINE 88 MCG TAB PO SCH (11:12)
[2016-12-26] MEDS: metFORMIN HCL 500 MG TAB PO SCH ×2 (11:22→17:07)
[2016-12-26] MEDS ORDERED: GABAPENTIN 300 MG CAP PO ONE (11:45)
[2016-12-26] MEDS ORDERED: CITRIC ACID/SODIUM CITRATE 30 ML UDCUP PO ONE (12:38)
--- NOTE | 2016-12-26 15:02 | SOAPPROG ---
SOAP Progress Note Assessment/Plan: Assessment: Plan: 12/22/16 19:46 Plan as above with medication changes and abbreviated acute course ECT starting Saturday. 12/25/16 17:12 Improved, tolerating med changes well. CCM with MWF ECT this week. 12/26/16 15:02 Continued improvement. CCM. Subjective: Pt seen, discussed with staff. Reports feeling "a lot better" after two acute course ECT treatments. She notes no cognitive issues thus far. Participating actively in therapies on the unit. Objective: Vital Signs Temp Pulse Resp BP Pulse Ox 36.6 C 80 12 123/69 H 97 12/26/16 11:38 12/26/16 11:38 12/26/16 11:38 12/26/16 11:38 12/26/16 11:38 MSE: Calm, coop. Affect is brighter, better modulated. Mood is "better." TP linear. TC reveals no psychosis. Denies current SI. - Time Spent With Patient Time Spent With Patient: 35" ICD10 Worksheet Patient Problems: Problems Problem Status Onset Depression Acute pneumoperitoneum Acute
[2016-12-26] MEDS: GABAPENTIN 300 MG CAP PO SCH (20:35)
[2016-12-26] MEDS: PERPHENAZINE 2 MG TAB PO SCH (20:35)
[2016-12-26] MEDS: QUEtiapine FUMARATE 100 MG TAB PO SCH (20:35)
[2016-12-26] MEDS: [UNRECOGNIZED DRUG - OTHER] PO SCH (20:36)
[2016-12-26] MEDS: PROGESTERONE PO SCH (20:36)
[2016-12-26] MEDS: Eszopiclone [Lunesta] 3 MG PO SCH (20:37)
[2016-12-27] MEDS: LAMOTRIGINE 100 MG PO SCH (10:59)
[2016-12-27] MEDS: [UNRECOGNIZED DRUG - OTHER] TP SCH (11:00)
[2016-12-27] MEDS: QUINIDINE PO SCH ×2 (11:00→19:29)
[2016-12-27] MEDS: DEXTROMETHORPHAN HBR PO SCH ×2 (11:00→19:29)
[2016-12-27] MEDS: LEVOTHYROXINE 88 MCG TAB PO SCH (11:01)
[2016-12-27] MEDS: MEMANTINE HCL 5 MG TAB PO SCH (11:01)
[2016-12-27] MEDS: metFORMIN HCL 500 MG TAB PO SCH ×2 (11:01→17:50)
[2016-12-27] MEDS: ESCITALOPRAM OXALATE 10 MG TAB PO SCH (11:02)
[2016-12-27] MEDS: GABAPENTIN 300 MG CAP PO SCH ×2 (11:02→18:20)
[2016-12-27] MEDS ORDERED: PATCH REMOVAL 1 EA PATCH TD SCH (12:33)
--- NOTE | 2016-12-27 15:58 | SOAPPROG ---
SOAP Progress Note Assessment/Plan: Assessment: Plan: 12/22/16 19:46 Plan as above with medication changes and abbreviated acute course ECT starting Saturday. 12/25/16 17:12 Improved, tolerating med changes well. CCM with MWF ECT this week. 12/26/16 15:02 Continued improvement. CCM. 12/27/16 15:58 Improvement continues with stable cognition. CCM. ECT tomorrow. Subjective: Pt seen, discussed with staff. Reports feelling well this morning, but sleepy. Went back to bad after breakfast. Mood is subjectively improved. Cognition is stable. Objective: Vital Signs Temp Pulse Resp BP Pulse Ox 36.3 C 84 14 110/74 96 12/27/16 11:10 12/27/16 11:10 12/27/16 11:10 12/27/16 11:10 12/27/16 11:10 MSE: Calm, coop. Affect is blunted, though brighter. Mood is "pretty good." TP lienar. TC reveals no psychosis. No SI. - Time Spent With Patient Time Spent With Patient: 15" ICD10 Worksheet Patient Problems: Problems Problem Status Onset Depression Acute pneumoperitoneum Acute
[2016-12-27] MEDS: [UNRECOGNIZED DRUG - OTHER] PO SCH (18:18)
[2016-12-27] MEDS: PROGESTERONE PO SCH (18:18)
[2016-12-27] MEDS: QUEtiapine FUMARATE 100 MG TAB PO SCH (18:20)
[2016-12-27] MEDS: PERPHENAZINE 2 MG TAB PO SCH (18:20)
[2016-12-27] MEDS: Eszopiclone [Lunesta] 3 MG PO SCH (19:26)
[2016-12-28] MEDS ORDERED: CITRIC ACID/SODIUM CITRATE 30 ML UDCUP PO ONE (05:00)
[2016-12-28] MEDS ORDERED: ONDANSETRON DISINTEGRATING 4 MG TAB PO ONE (05:00)
[2016-12-28] MEDS ORDERED: NS 1,000 ML IV ONE (05:00)
[2016-12-28] MEDS ORDERED: LIDOCAINE 2% 5 ML SDV ID ONE (05:00)
[2016-12-28] MEDS ORDERED: LIDOCAINE 2% 5 ML SDV ONE (06:01)
[2016-12-28] MEDS ORDERED: PROMETHAZINE HCL 25 MG TAB ONE (06:14)
[2016-12-28] MEDS ORDERED: CITRIC ACID/SODIUM CITRATE 30 ML UDCUP ONE (06:15)
[2016-12-28] MEDS ORDERED: ONDANSETRON DISINTEGRATING 4 MG TAB ONE (06:15)
[2016-12-28] MEDS ORDERED: SCOPOLAMINE HYDROBROMIDE 1.5 MG PATCH TD ONE (06:15)
[2016-12-28] MEDS ORDERED: MIDAZOLAM 2 MG/2 ML VIAL ONE (06:33)
[2016-12-28] MEDS ORDERED: fentaNYL 100 MCG/2 ML INJ ONE (06:34)
[2016-12-28] MEDS ORDERED: METHOHEXITAL SODIUM 100 MG/10 ML SYR IVP ONE (06:34)
[2016-12-28] MEDS ORDERED: KETOROLAC 30 MG/1 ML SDV ONE ×4 (06:34→06:41)
[2016-12-28] MEDS ORDERED: GLYCOPYRROLATE 0.2 MG/1 ML VIAL ONE (06:35)
[2016-12-28] MEDS ORDERED: ONDANSETRON 4 MG/2 ML VIAL ONE (06:35)
[2016-12-28] MEDS ORDERED: ROCURONIUM 50 MG/5 ML VIAL ONE (06:36)
[2016-12-28] MEDS ORDERED: PROPOFOL 200 MG/20 ML VIAL ONE (06:36)
[2016-12-28] MEDS ORDERED: SUCCINYLCHOLINE CHLORIDE 200 MG/10 ML VIAL ONE (06:37)
[2016-12-28] MEDS ORDERED: KETOROLAC 15 MG/1 ML SDV ONE (06:38)
[2016-12-28] MEDS ORDERED: HYDROCODONE/APAP 5/325 TAB ONE (07:25)
--- NOTE | 2016-12-28 08:25 | SOAPPROG ---
SOAP Progress Note Assessment/Plan: Assessment: Plan: 12/22/16 19:46 Plan as above with medication changes and abbreviated acute course ECT starting Saturday. 12/25/16 17:12 Improved, tolerating med changes well. CCM with MWF ECT this week. 12/26/16 15:02 Continued improvement. CCM. 12/27/16 15:58 Improvement continues with stable cognition. CCM. ECT tomorrow. 12/28/16 08:24 Doing well with acute course. Cognition is stable. CCM. Subjective: Pt seen, discussed with staff. Reports some cognitive changes, stating, " Things seem weird, kind of unreal." Also reports feeling "undermedicated" though cannot offer specifics. Objective: Vital Signs Temp Pulse Resp BP Pulse Ox 36.7 C 107 H 12 114/80 93 12/28/16 08:00 12/28/16 08:00 12/28/16 08:00 12/28/16 08:00 12/28/16 08:00 MSE: Calm, coop. Affect is blunted, stable. Mood is "pretty good." TP linear. TC reveals no psychosis. - Time Spent With Patient Time Spent With Patient: 35" ICD10 Worksheet Patient Problems: Problems Problem Status Onset Depression Acute pneumoperitoneum Acute
[2016-12-28] MEDS: GABAPENTIN 300 MG CAP PO SCH ×2 (10:52→21:03)
[2016-12-28] MEDS: ESCITALOPRAM OXALATE 10 MG TAB PO SCH (10:52)
[2016-12-28] MEDS: metFORMIN HCL 500 MG TAB PO SCH ×2 (10:54→20:58)
[2016-12-28] MEDS: LEVOTHYROXINE 88 MCG TAB PO SCH (10:54)
[2016-12-28] MEDS: MEMANTINE HCL 5 MG TAB PO SCH (10:55)
[2016-12-28] MEDS: LAMOTRIGINE 100 MG PO SCH (10:58)
[2016-12-28] MEDS: [UNRECOGNIZED DRUG - OTHER] TP SCH (10:58)
[2016-12-28] MEDS: DEXTROMETHORPHAN HBR PO SCH ×2 (11:09→21:01)
[2016-12-28] MEDS: QUINIDINE PO SCH ×2 (11:09→21:01)
[2016-12-28] MEDS: [UNRECOGNIZED DRUG - OTHER] PO SCH (20:59)
[2016-12-28] MEDS: PROGESTERONE PO SCH (20:59)
[2016-12-28] MEDS: Eszopiclone [Lunesta] 3 MG PO SCH (21:06)
[2016-12-28] MEDS: PERPHENAZINE 2 MG TAB PO SCH (21:08)
[2016-12-28] MEDS: QUEtiapine FUMARATE 100 MG TAB PO SCH (21:09)
[2016-12-29] MEDS: metFORMIN HCL 500 MG TAB PO SCH ×2 (09:29→17:05)
[2016-12-29] MEDS: GABAPENTIN 300 MG CAP PO SCH ×2 (09:31→20:14)
[2016-12-29] MEDS: ESCITALOPRAM OXALATE 10 MG TAB PO SCH (09:31)
[2016-12-29] MEDS: MEMANTINE HCL 5 MG TAB PO SCH (09:33)
[2016-12-29] MEDS: QUINIDINE PO SCH ×2 (09:33→20:15)
[2016-12-29] MEDS: DEXTROMETHORPHAN HBR PO SCH ×2 (09:33→20:15)
[2016-12-29] MEDS: LAMOTRIGINE 100 MG PO SCH (09:33)
[2016-12-29] MEDS: [UNRECOGNIZED DRUG - OTHER] TP SCH (09:34)
[2016-12-29] MEDS: LEVOTHYROXINE 88 MCG TAB PO SCH (09:36)
--- NOTE | 2016-12-29 14:43 | SOAPPROG ---
SOAP Progress Note Assessment/Plan: Assessment: 51yo F with BMD and chronic depr sxs admitted 2/2 persistent mixed state for med reduction and brief course acute ECT. 12/29/16 14:33 slept 7.5hr +brief nap received 3x ECT this week. on interview, reports that since last week she is "better, I think", has some forgetfulness from ECT mainly during week of ECT: "I don't remember much of last week", but does recall having a "rough time" with med changes initially on admission, but feels her body has gotten readjusted to med changes, and "my boyfriend told me I sounded better". States since med changes and ECT, "I sleep better", mood is better, and rates depression 3/10 (0=none) and thinks she was 6 /10 last week. Reports med changes as she recalls are "I'm off lithium, off wellbutrin, and on less gabapentin". MSE: casually dressed, long hair appears unwashed with dandruff (pt acknowledged, adding "I'll shower today"), good eye contact, thoughts linear, mood "good", affect somewhat reserved but laughs appropriately, denied psychotic symptoms, denied any SI, no thoughts to harm others, insight/jdgmt seem intact, A&Ox3 Plan: anticipate d/c early in week no med changes indicated d/c suicide precautions has f/u appts in place pt is voluntary Objective: Vital Signs Temp Pulse Resp BP Pulse Ox 36.6 C 102 H 12 111/65 96 12/29/16 00:30 12/29/16 00:30 12/29/16 00:30 12/29/16 00:30 12/29/16 00:30 - Time Spent With Patient Time Spent With Patient: 20min - Pending Discharge Pending Discharge Within 24 Hours: No Pending Discharge Within 48 Hours: Yes Pending Discharge Date: 12/31/16 Pending Discharge Time: 11:00 ICD10 Worksheet Patient Problems: Problems Problem Status Onset Depression Acute pneumoperitoneum Acute
[2016-12-29] MEDS: Eszopiclone [Lunesta] 3 MG PO SCH (20:13)
[2016-12-29] MEDS: PROGESTERONE PO SCH (20:13)
[2016-12-29] MEDS: QUEtiapine FUMARATE 100 MG TAB PO SCH (20:14)
[2016-12-29] MEDS: PERPHENAZINE 2 MG TAB PO SCH (20:15)
[2016-12-29] MEDS ORDERED: [UNRECOGNIZED DRUG - OTHER] PO SCH (21:00)
[2016-12-29] MEDS ORDERED: PROGESTERONE PO SCH (21:00)
[2016-12-30] MEDS: GABAPENTIN 300 MG CAP PO SCH ×2 (08:19→20:18)
[2016-12-30] MEDS: MEMANTINE HCL 5 MG TAB PO SCH (08:19)
[2016-12-30] MEDS: [UNRECOGNIZED DRUG - OTHER] TP SCH (08:20)
[2016-12-30] MEDS: metFORMIN HCL 500 MG TAB PO SCH ×2 (08:20→17:44)
[2016-12-30] MEDS: ESCITALOPRAM OXALATE 10 MG TAB PO SCH (08:21)
[2016-12-30] MEDS: QUINIDINE PO SCH ×2 (08:25→20:17)
[2016-12-30] MEDS: DEXTROMETHORPHAN HBR PO SCH ×2 (08:25→20:17)
[2016-12-30] MEDS: LAMOTRIGINE 100 MG PO SCH (08:26)
[2016-12-30] MEDS: LEVOTHYROXINE 88 MCG TAB PO SCH (09:58)
[2016-12-30] MEDS: Eszopiclone [Lunesta] 3 MG PO SCH (20:15)
[2016-12-30] MEDS: PROGESTERONE PO SCH (20:17)
[2016-12-30] MEDS: PERPHENAZINE 2 MG TAB PO SCH (20:18)
[2016-12-30] MEDS: QUEtiapine FUMARATE 100 MG TAB PO SCH (20:18)
--- NOTE | 2016-12-30 21:24 | SOAPPROG ---
SOAP Progress Note Assessment/Plan: Assessment: 51yo F with BMD and chronic depr sxs admitted 2/2 persistent mixed state for med reduction and brief course acute ECT. 12/29/16 14:33 slept 7.5hr +brief nap received 3x ECT this week. on interview, reports that since last week she is "better, I think", has some forgetfulness from ECT mainly during week of ECT: "I don't remember much of last week", but does recall having a "rough time" with med changes initially on admission, but feels her body has gotten readjusted to med changes, and "my boyfriend told me I sounded better". States since med changes and ECT, "I sleep better", mood is better, and rates depression 3/10 (0=none) and thinks she was 6 /10 last week. Reports med changes as she recalls are "I'm off lithium, off wellbutrin, and on less gabapentin". MSE: casually dressed, long hair appears unwashed with dandruff (pt acknowledged, adding "I'll shower today"), good eye contact, thoughts linear, mood "good", affect somewhat reserved but laughs appropriately, denied psychotic symptoms, denied any SI, no thoughts to harm others, insight/jdgmt seem intact, A&Ox3 Plan: anticipate d/c early in week no med changes indicated d/c suicide precautions has f/u appts in place pt is voluntary 12/30/16 21:18 slept 8hr. Noted by staff overall with brighter affect. looking fwd to d/c soon. reports she has been sleeping well, no side effects to medications, and no physical c/o. casually dressed, nml psychom activity, nml speech, "pretty good" mood, and clinically with brighter and teresa affect range on interview compared to last week. denied any SI, +linear thoughts, no psychosis. i/j-both seem good. states thoughts are "more clear", recalled what she had for bkfast and was A&Ox4 , except thought it was 29th. offered AG privs and pt would like to go out for walk if staff available. VS qshift, notable for incr BP at 1600 PLAN no med changes indicated. doing well per pt and staff report. anticipate d/c early in week AG privs, off SP Objective: Vital Signs Temp Pulse Resp BP Pulse Ox 36.4 C 68 16 152/81 H 98 12/30/16 16:00 12/30/16 16:00 12/30/16 16:00 12/30/16 16:00 12/30/16 16:00 - Time Spent With Patient Time Spent With Patient: 15min - Pending Discharge Pending Discharge Within 24 Hours: No Pending Discharge Within 48 Hours: Yes Pending Discharge Date: 01/01/17 Pending Discharge Time: 11:00 ICD10 Worksheet Patient Problems: Problems Problem Status Onset Depression Acute pneumoperitoneum Acute
[2016-12-31 06:15] VITALS: TEMP 97.7
[2016-12-31] MEDS: metFORMIN HCL 500 MG TAB PO SCH (08:25)
[2016-12-31] MEDS: ESCITALOPRAM OXALATE 10 MG TAB PO SCH (08:26)
[2016-12-31] MEDS: GABAPENTIN 300 MG CAP PO SCH (08:26)
[2016-12-31] MEDS: MEMANTINE HCL 5 MG TAB PO SCH (08:27)
[2016-12-31] MEDS: [UNRECOGNIZED DRUG - OTHER] TP SCH (08:28)
[2016-12-31] MEDS: DEXTROMETHORPHAN HBR PO SCH (08:29)
[2016-12-31] MEDS: LAMOTRIGINE 100 MG PO SCH (08:29)
[2016-12-31] MEDS: QUINIDINE PO SCH (08:29)
[2016-12-31] MEDS: LEVOTHYROXINE 88 MCG TAB PO SCH (10:38)
[2016-12-31 12:35] VITALS: BP 126/77; PULSE 72; RESP 15; O2SAT 98
--- NOTE | 2017-01-01 02:35 | BDS ---
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 She is a long-term outpatient of Dr. Donald nicolas for maintenance ECT and had recently called and said that she was not doing well and was feeling u nsafe out of the hospital. She also had numerous odd side effects from her medications recently, in cluding repeated falls. Dr. Chavez requested the patient be hospitalized in order to decrease her m edications and possibly do a brief burst of acute course ECT to address her mood instability. He wa s leaving [facility], so I was the primary attending for the patient during her stay. ADMITTING DIAGNOSES: Bipolar 1 disorder, most recent episode mixed, severe without psychosis. Medi cation side effects. Polypharmacy. Suicidal thoughts. ADMISSION PHYSICAL EXAMINATION: Performed by Dr. Murphy Chapa, revealed no acute physical findings. ADMISSION LABORATORY: CBC was normal. Serum chemistries were normal. TSH was normal at 0.784. Ur inalysis showed no evidence of infection. Urine drug screen showed no substances of abuse, though t he only substances tested for was amphetamine. Alcohol was less than detectable, and Lamictal level was 10.7. HOSPITAL COURSE: Patient was admitted to the [facility] inpatient unit on an M1 hold. She was pleasant, cooperative and appeared invested in her treatment. She ultimately was converte d to a voluntary status. She participated actively in all therapies and was motivated for the medic ation changes and the bump of ECT. Dr. Chavez initiated medication changes immediately upon her arr ival and on the second day of her hospitalization, she voiced concerns about this. She stated that she was simply afraid that she might feel badly if the medicines were decreased too significantly. I re-emphasized to her that this was the plan but that if she was uncomfortable, she could back off and wait for her outpatient psychiatrist, Dr. Mac, to return to [facility], and they could look at i t again. She stated that no, she wanted to go with this plan, and was able to tolerate the decrease in medications very well. Specifically, the gabapentin was decreased from a total of 2400 to a tot al of 1800 a day. The Lamictal was decreased from 250 mg daily to 100 mg daily. Lexapro was contin ued at 2.5 mg daily and Namenda at 10 mg daily. She also continued her Synthroid at 88 mcg, Nuedext a at her previous dose, estrogen and progesterone as previously prescribed, and perphenazine at 4 mg at bedtime. The patient tolerated these changes well with no apparent misadventures, including any kinds of withdrawal. The patient's hospital course was uncomplicated. She had 3 acute course ECT treatments on Saturday, , and Saturday. She tolerated these well with no disruption in her cognition or other problem s. She stayed over the weekend, as her brother had voiced concern that her cognition be normal when she returned to his home. On Saturday, I was able to re-evaluate her and felt like her cognition was fine, and she was requesting discharge. I do not believe she met any criteria for involuntary hosp italization, and she was on board with the plan. CONDITION AT DISCHARGE: Stable. Her affect was slightly blunted though brighter than on admission. She was having no thoughts of suicide. DISCHARGE MEDICATIONS: Namenda 10 mg daily. Seroquel 300 mg h.s. Lunesta 3 mg h.s. Lexapro 2.5 m g daily. Metformin 750 mg twice daily with meals. Synthroid 88 mcg daily. Estrogen compound 1 roberto lication daily. Compounded progesterone 300 mg at h.s. Lamictal 100 mg daily. Gabapentin 600 mg t wice daily. Nuedexta 20/10 mg capsule, 1 b.i.d. [place] 5/325, one to 2 tabs every 4 hours as needed for post ECT headache, and perphenazine 4 mg p.o. q.h.s. DISCHARGE DIAGNOSES: Bipolar 1 disorder, most recent episode mixed, severe, without psychosis. Danii cidal ideation. Chronic illness. Recent exacerbation of illness. Polypharmacy. DISPOSITION: Patient left the hospital with a friend to return to her home in [place]. FOLLOWUP: With her outpatient providers as scheduled by the career technology teacher within the next week, and with ECT 1 week from today. LEGAL COURSE: The patient was converted to voluntary status at the expiration of her M1 hold. /[id number]/MODL
== END 2016-12-31 14:02 | disposition home or self-care (01) | DRG 885 ==
LOC: BBEH 21:35
PROVIDERS: ADMIT Psychiatry & Neurology Psychiatry; ATTEND Psychiatry & Neurology Psychiatry
PROC: GZB4ZZZ Other Electroconvulsive Therapy (ICD-10-PCS; principal; 2016-12-21)
DX: F31.64 Bipolar disorder, current episode mixed, severe, with psychotic features (principal)
CPT/HCPCS: 80175-90; 80305; G0480; J0330; J1200; J1885; J2060; J2250; J2405; J2704; J3010

== ENCOUNTER → 2018-03-12 | Outpatient (CLI) | payer OTHER, MEDICAID | LOC: FCPNEURO 23:36 | PROVIDERS: ATTEND Student in an Organized Health Care Education/Training Program | DX: G47.33 Obstructive sleep apnea (adult) (pediatric) (principal) ==

== ENCOUNTER → 2018-06-12 | Outpatient (CLI) | payer OTHER, MEDICAID | LOC: FIMAGING 10:29 | PROVIDERS: ATTEND Family Medicine | DX: Z12.31 Encounter for screening mammogram for malignant neoplasm of breast (principal) ==